=== PATIENT | female | born 1960 | race African-American/Black ===

== ENCOUNTER 2021-06-26 19:40 | Inpatient (IN) | payer OTHER ==
[~2021-06-26] VITALS: Ht 165.1 cm; Wt 78.5 kg
--- NOTE | 2021-06-26 20:20 | NUR ---
20g IV LINE INITIATED AT THE [facility].PATENT AND INTACT. BLOOD WAS DRAWN AND SENT TO LAB.
--- NOTE | 2021-06-26 20:30 | NUR ---
COVID TEST SWABBED AND SENT TO LAB
[2021-06-26 20:35] LABS: BASOPHILS % (AUTO) 0.4 % (0.0-2.0); EOSINOPHILS % (AUTO) 0.1 % (0.0-6.0); HEMATOCRIT 32 % (33-45); HEMOGLOBIN 10.3 g/dL (11.5-14.8); LYMPHOCYTES # (AUTO) 1.3 K/uL (0.8-4.8); LYMPHOCYTES % (AUTO) 10.2 % (20.0-44.0); MEAN CORPUSCULAR HGB CONC 32 g/dl (31.0-36.0); MEAN CORPUSCULAR VOLUME 92 fL (82-100); MONOCYTES # (AUTO) 0.9 K/uL (0.1-1.30); MONOCYTES % (AUTO) 7.2 % (2.0-12.0); NEUTROPHILS # (AUTO) 10.5 K/uL (1.8-8.9); NEUTROPHILS % (AUTO) 82.1 % (43.0-81.0); PLATELET COUNT (AUTO) 298 K/uL (150-450); RED BLOOD CELL COUNT(AUTO) 3.46 MIL/uL (4.0-5.2); WHITE BLOOD COUNT (AUTO) 12.8 K/uL (4.3-11.0)
--- NOTE | 2021-06-26 20:35 | NUR ---
URINE COLLECTED AND SENT TO LAB
[2021-06-26 21:10] LABS: BILIRUBIN,URINE NEGATIVE (NEGATIVE); COLOR,URINE YELLOW (YELLOW); LEUKOCYTE ESTERASE ,URINE MODERATE (NEGATIVE); NITRITE, URINE NEGATIVE (NEGATIVE); PROTEIN,URINE NEGATIVE (NEGATIVE); UGLUCOSE NEGATIVE (NEGATIVE); UROBILINOGEN,URINE 0.2 EU/dL (0.2)
[2021-06-26 21:14] LABS: BACTERIA,URINE 2+ /HPF (None Seen); WBC,URINE 21-50 /HPF (0-3)
[2021-06-26 21:15] LABS: MUCUS,URINE Few /LPF (None Seen); SQUAMOUS EPITHELIAL CELL,UR 0-2 /HPF (None Seen)
[2021-06-26] MEDS ORDERED: ONDANSETRON HCL/PF 4 MG/2 ML VIAL ONE (21:28)
[2021-06-26 21:45] LABS: ALANINE AMINOTRANSFERASE 22 U/L (12-78); ALBUMIN 3.3 g/dL (3.4-5.0); ALKALINE PHOSPHATASE 60 U/L (46-116); ASPARTATE AMINOTRANSFERASE 14 U/L (15-37); BILIRUBIN,DIRECT 0.1 mg/dL (0.0-0.2); BILIRUBIN,TOTAL 0.4 mg/dL (0.2-1.0); CALCIUM, SERUM 9.7 mg/dL (8.5-10.1); CARBON DIOXIDE 27 mmol/L (21-32); CHLORIDE 101 mmol/L (98-107); CREATININE 0.8 mg/dL (0.6-1.3); GLUCOSE 116 mg/dL (74-106); SODIUM SERUM 138 mmol/L (136-145); TOTAL PROTEIN, SERUM 7.8 g/dL (6.4-8.2); UREA NITROGEN, BLOOD 13 mg/dL (7-18)
[2021-06-26] MEDS ORDERED: ONDANSETRON HCL/PF 4 MG/2 ML VIAL IV ONE (22:00)
[2021-06-26] MEDS ORDERED: VANCOMYCIN 1 GM in IV D5W 250 ML IV ONE (22:30)
[2021-06-26] MEDS ORDERED: CEFTRIAXONE 1GM BAG (ER ONLY) 1 GM/50 ML PIGGYBACK IV ONE (22:30)
[2021-06-26] MEDS ORDERED: CEFTRIAXONE 1GM BAG (ER ONLY) 50 ML IV ONE (22:38)
[2021-06-26] MEDS ORDERED: VANCOMYCIN 1 GM VIAL ONE (22:38)
[2021-06-26] MEDS ORDERED: HYDROCODONE/APAP 5/325MG TABLET ONE (22:52)
[2021-06-26] MEDS ORDERED: HYDROCODONE/APAP 5/325MG TABLET PO ONE (23:00)
[2021-06-27] MEDS ORDERED: ACETAMINOPHEN 325 MG TABLET PO PRN (00:30)
[2021-06-27] MEDS ORDERED: ONDANSETRON HCL/PF 4 MG/2 ML VIAL IVP PRN (00:30)
[2021-06-27] MEDS ORDERED: MAGNESIUM HYDROXIDE 30 ML UDC PO PRN (00:30)
[2021-06-27] MEDS ORDERED: ZOLPIDEM TARTRATE 5 MG TABLET PO PRN (00:30)
[2021-06-27] MEDS ORDERED: Z GUARD REMEDY 4 OZ OINT TP PRN (00:30)
[2021-06-27] MEDS ORDERED: MAG HYDROX/AL HYDROX/SIMETH 30 ML UDC PO PRN (00:30)
--- NOTE | 2021-06-27 02:02 | NUR ---
REPORT GIVEN TO [facility] FOR [facility].
[2021-06-27 02:15] VITALS: BP 113/68
--- NOTE | 2021-06-27 02:20 | NUR ---
PT TRANSPORTED TO ROOM 327 IN STABLE CONDITION. V/S STABLE AT TRANSFER
[2021-06-27 02:30] VITALS: BP 113/68
--- NOTE | 2021-06-27 02:30 | NUR ---
MS GAMBRELER HELPER NOTES RECEIVED NEW ADMIT FROM ER PER CATARINA THIS 61YO FEMALE,ALERT,ORIENTED X4,WITH CHIEF COMPLAINTS OF PAIN ON LEFT BREAST,S/P BILATERAL MASTECTOMY ON May.NOTED LEFT BREAST MASTECTOMY SITE APPEARS SWOLLEN,WITH SLIGHT REDNESS,WARM AND TENDER TO THE TOUCH,NO DISCHARGES,NO FOUL SMELL NOTED.IV ANTIBIOTICS STARTED IN ER.WITH SALINE LOCK RIGHT AC INTACT AND PATENT.AMBULATE WITH STEADY GAIT,UNVACCINATED WITH COVID VACCINE WELL FLU AND PNA VACCINE.PATIENT SAYS SHE DOESNT BELIEVE IN VACCINE,AND SHE NEVER NOR S[place] GET SICK.FULL CODE STATUS.CALL LIGHT IN REACH,NEEDS ANTICIPATED.
[2021-06-27] MEDS: IV NS 0.9% 1,000 ML IV PRN ×2 (02:41→19:43)
--- NOTE | 2021-06-27 02:41 | NUR ---
MS RN NOTES IV NS STARTED AY 75ML/HR RATE INFUSING ON RIGHT AC SALINE LOCK VIA IV PUMP.
[2021-06-27] MEDS: HYDROCODONE/APAP 5/325MG TABLET PO PRN ×3 (05:57→21:08)
--- NOTE | 2021-06-27 05:57 | NUR ---
MS RN NOTES PAIN MANAGEMENT C/O PAIN ON LEFT BREAST MASTECTOMY,NORCO 5/325MG,1 TAB PO GIVEN ORDERED,,ENCOURAGE TO INCREASED FLUID INTAKE.
--- NOTE | 2021-06-27 06:39 | NUR ---
MS RN NOTES ON BED,A/O X4,IVF INFUSING WELL ON RIGHT AC SALINE LOCK.PAIN MANAGEMENT EFFECTIVE,IN NO ACUTE DISTRESS.
--- NOTE | 2021-06-27 07:38 | NUR ---
RN OPENING NOTES Patient seen comfortably lying in bed, no apparent distress noted, respirations even and unlabored, no shortness of breath, denies any pain or discomfort at this time, no grimacing. Call light left within reach, safety precautions in place, brakes locked, side rails up X 2, will monitor closely for any changes.
[2021-06-27 08:00] VITALS: BP 98/52
[2021-06-27] MEDS: PANTOPRAZOLE 40 MG TABLET.DR PO SCH (08:18)
[2021-06-27] MEDS: VANCOMYCIN 0.75 GM in IV D5W 250 ML IV SCH ×3 (08:19→23:32)
[2021-06-27] MEDS ORDERED: GABA600T12 PO (08:45)
[2021-06-27] MEDS ORDERED: FLUT1DIS3 INH (08:45)
[2021-06-27] MEDS ORDERED: OXYC1TAB8 PO (08:45)
[2021-06-27] MEDS ORDERED: ALBU18HF2 IH (08:45)
[2021-06-27] MEDS ORDERED: ACET1TAB23 PO (08:45)
--- NOTE | 2021-06-27 09:51 | NUR ---
WOUND CARE CONSULT: PT PRESENTS WITH LEFT MASTECTOMY SITE WITH OPEN AREAS, SOME SWELLING AND REDNESS, PRESENT ON ADMISSION. RECOMMENDATIONS MADE FOR WOUND CARE AND SKIN PROTECTION. DISCUSSED WITH NURSING STAFF. DR VANE BOOTH CALLED FOR SURGICAL CONSULT. IN AGREEMENT WITH PLAN OF CARE.
[2021-06-27 16:00] VITALS: BP 102/63
--- NOTE | 2021-06-27 18:59 | NUR ---
RN CLOSING NOTES Patient lying in bed, no shortness of breath, respirations even and unlabored, no apparent distress noted, no dizziness, no palpitations, no chest pain during shift. All due medications given per MD order, tolerating well, pain medications given when non pharmacological measures ineffective. Kept clean and dry, all needs attended, call light left within reach, safety precautions in place, brakes locked, frequent visual checks rendered, side rails up X 2, will endorse to next shift for continuity of care.
[2021-06-27 20:00] VITALS: BP 127/55
[2021-06-27] MEDS: CEFTRIAXONE 1 G in IV D5W 50 ML IV SCH (21:07)
[2021-06-28] MEDS: HYDROCODONE/APAP 5/325MG TABLET PO PRN ×3 (01:48→15:38)
--- NOTE | 2021-06-28 02:04 | NUR ---
LEFT BREAST DRESSING SATURATED WITH SEROSANGUINOUS FLUID, WOUND TREATMENT, DRESSING CHANGED ORDERED.
--- NOTE | 2021-06-28 06:50 | NUR ---
MS RN CLOSING NOTES PATIENT IS LAYING IN BED. Pt. A/Ox4 AND ON ROOM AIR TOLERATING WELL. NO COMPLAINTS OF PAIN MADE AT THIS TIME AND NO SIGNS OF DISTRESS. SAFETY MEASURES ARE IN PLACE: BED IS LOCKED AND IN LOWEST POSITION, SIDE RAILS UPx2. CALL LIGHT AND BED SIDE TABLE WITHIN REACH. WILL ENDORSE TO ONCOMING SHIFT.
[2021-06-28 07:08] LABS: BASOPHILS % (AUTO) 0.2 % (0.0-2.0); HEMATOCRIT 28 % (33-45); LYMPHOCYTES # (AUTO) 1.6 K/uL (0.8-4.8); LYMPHOCYTES % (AUTO) 14.8 % (20.0-44.0); MEAN CORPUSCULAR HGB CONC 33 g/dl (31.0-36.0); MEAN CORPUSCULAR VOLUME 92 fL (82-100); MONOCYTES # (AUTO) 0.8 K/uL (0.1-1.30); MONOCYTES % (AUTO) 7.1 % (2.0-12.0); NEUTROPHILS # (AUTO) 8.6 K/uL (1.8-8.9); NEUTROPHILS % (AUTO) 77.9 % (43.0-81.0); PLATELET COUNT (AUTO) 268 K/uL (150-450); RED BLOOD CELL COUNT(AUTO) 2.99 MIL/uL (4.0-5.2); WHITE BLOOD COUNT (AUTO) 11.1 K/uL (4.3-11.0)
--- NOTE | 2021-06-28 07:37 | NUR ---
MS RN OPENING NOTES RECEIVED Pt IN BED, Pt IS A/Ox4 AND IS ON ROOM AIR TOLERATING WELL. NO COMPLAINTS OF PAIN OR SIGNS OF DISTRESS AT THIS TIME. Pt HAS AN IV ON R WRIST THAT IS PATENT AND INTACT. SAFETY MEASURES ARE IN PLACE: BED IS LOCKED AND IN LOWEST POSITION. SIDE RAILS UPx2. BED SIDE TABLE AND CALL LIGHT ARE WITHIN REACH. WILL CONTINUE TO MONITOR THROUGHOUT THE SHIFT.
[2021-06-28 08:00] VITALS: BP 118/62
[2021-06-28 08:15] LABS: CALCIUM, SERUM 8.8 mg/dL (8.5-10.1); CREATININE 0.7 mg/dL (0.6-1.3); MAGNESIUM 2.1 mg/dL (1.8-2.4); PHOSPHORUS 3.7 mg/dL (2.5-4.9)
[2021-06-28 08:18] LABS: IRON, SERUM 7 ug/dl (50-175); TOTAL IRON BINDING CAPACITY 161 ug/dl (250-450)
[2021-06-28] MEDS ORDERED: IV NS 0.9% 250 ML IV ONE (08:49)
[2021-06-28] MEDS ORDERED: IOHEXOL-300 100 ML VIAL IV ONE (08:49)
[2021-06-28] MEDS ORDERED: CT SWABBABLE VALVE TRANS SET 1 EA INFUS.SET MC ONE (08:49)
[2021-06-28] MEDS ORDERED: ALBUTEROL FS 2.5 MG/3 ML VIAL.NEB NEB PRN (11:00)
[2021-06-28] MEDS: VANCOMYCIN 0.75 GM in IV D5W 250 ML IV SCH ×3 (11:06→23:56)
[2021-06-28] MEDS: PANTOPRAZOLE 40 MG TABLET.DR PO SCH (11:07)
[2021-06-28 12:07] LABS: THYROID STIMULATING HORMONE 0.872 uIU/mL (0.358-3.74)
[2021-06-28] MEDS: IV NS 0.9% 1,000 ML IV PRN (15:52)
[2021-06-28 16:00] VITALS: BP 127/65
[2021-06-28] MEDS ORDERED: FLUTICASONE/SALMETEROL 1 DISK IH SCH (17:00)
[2021-06-28 20:00] VITALS: BP 124/59
[2021-06-28] MEDS: CEFTRIAXONE 1 G in IV D5W 50 ML IV SCH (21:54)
[2021-06-28] MEDS: GABAPENTIN 300 MG CAPSULE PO SCH (21:56)
[2021-06-28 22:59] VITALS: BP 124/59
[2021-06-29] MEDS: HYDROCODONE/APAP 5/325MG TABLET PO PRN ×4 (00:02→22:27)
--- NOTE | 2021-06-29 04:40 | NUR ---
Closing Notes: alert and orientated X$ speech clear remains in Isolation to R/O TB 1st sputum Negative 06/27 in the history /Physical states she was test for TB and not treated or told if + or - She had ne change the dressing D/T she didn't like the way it was done and paper tapes (as ordered) was being used. DIDN'T remove the 4X4 gauze just the ABD and did as she wished using OPSITE no tape. right arm midline in use ambulates to the bathroom stand by assit steady on her legs left breast dressing CDI thru the night
--- NOTE | 2021-06-29 08:05 | NUR ---
RN Opening Note Patient received in bed AO x 4, no distress, able to responds all stimuli. Respiratory even and unlabored on room air. Skin is warm to touch, keep clean/dry, intact IV site. Kept elevated HOB for ensure airway/aspiration precaution and remain lower position of the bed for safety. call light within reach, will continue to monitor.
[2021-06-29 08:16] LABS: BASOPHILS % (AUTO) 0.6 % (0.0-2.0); EOSINOPHILS % (AUTO) 1.5 % (0.0-6.0); HEMATOCRIT 28 % (33-45); HEMOGLOBIN 9.3 g/dL (11.5-14.8); LYMPHOCYTES # (AUTO) 2.1 K/uL (0.8-4.8); LYMPHOCYTES % (AUTO) 28.1 % (20.0-44.0); MEAN CORPUSCULAR HGB CONC 33 g/dl (31.0-36.0); MEAN CORPUSCULAR VOLUME 92 fL (82-100); MONOCYTES # (AUTO) 0.5 K/uL (0.1-1.30); MONOCYTES % (AUTO) 6.8 % (2.0-12.0); NEUTROPHILS # (AUTO) 4.7 K/uL (1.8-8.9); PLATELET COUNT (AUTO) 285 K/uL (150-450); RED BLOOD CELL COUNT(AUTO) 3.09 MIL/uL (4.0-5.2); WHITE BLOOD COUNT (AUTO) 7.5 K/uL (4.3-11.0)
[2021-06-29] MEDS: PANTOPRAZOLE 40 MG TABLET.DR PO SCH (08:21)
[2021-06-29] MEDS: VANCOMYCIN 0.75 GM in IV D5W 250 ML IV SCH ×2 (08:22→15:48)
[2021-06-29] MEDS: FLUTICASONE/VILANTEROL 1 EACH BLST.W.DEV IH SCH (08:22)
[2021-06-29 08:46] VITALS: BP 139/76
[2021-06-29 09:17] LABS: CREATININE 0.7 mg/dL (0.6-1.3); POTASSIUM 4.2 mmol/L (3.5-5.1)
[2021-06-29 16:00] VITALS: BP 139/74
--- NOTE | 2021-06-29 17:32 | NUR ---
RN Closing Note Patient is resting in bed, AO x 4, no distress observed. Respiratory even and unlabored on room air. Skin is warm to touch, keep clean/dry, intact IV site. Kept elevated HOB for ensure airway and aspiration precaution. Also lower position of the bed for safety. Dressing changed on left upper chest. No adverse reaction observed form antibiotics. Call light within reach, all needs met. will endorse shift superintendent caustic cresylate.
--- NOTE | 2021-06-29 19:15 | NUR ---
MS RN OPENING NOTES PATIENT LAYING AWAKE IN BED. A/O X4. PATIENT WITH REGULAR AND UNLABORED BREATHING ON ROOM AIR, TOLERATED WELL. NO SIGNS OR SYMPTOMS OF DISTRESS NOTED AT THIS TIME. NO COMPLAINS OF PAIN OR DISCOMFORT AT THIS TIME. IV ACCESS AMARIS MIDLINE INFUSING NS @ 75 ML/HR. IV ACCESS PATENT AND INTACT. SAFETY PRECAUTIONS ENFORCED WITH BED LOCKED AND AT LOWEST POSITION. SIDERAILS UP X2. CALL LIGHT WITHIN REACH AT ALL TIMES. WILL CONTINUE TO MONITOR PATIENT.
[2021-06-29 20:00] VITALS: BP 151/81
[2021-06-29] MEDS: IV NS 0.9% 1,000 ML IV PRN (20:17)
[2021-06-29] MEDS: GABAPENTIN 300 MG CAPSULE PO SCH (22:20)
[2021-06-30] MEDS: VANCOMYCIN 0.75 GM in IV D5W 250 ML IV SCH ×4 (00:13→22:40)
[2021-06-30 06:53] LABS: BASOPHILS # (AUTO) 0.1 K/uL (0.0-0.2); BASOPHILS % (AUTO) 0.9 % (0.0-2.0); HEMATOCRIT 29 % (33-45); HEMOGLOBIN 9.4 g/dL (11.5-14.8); LYMPHOCYTES # (AUTO) 2.4 K/uL (0.8-4.8); LYMPHOCYTES % (AUTO) 38.6 % (20.0-44.0); MEAN CORPUSCULAR HGB CONC 33 g/dl (31.0-36.0); MEAN CORPUSCULAR VOLUME 91 fL (82-100); MONOCYTES # (AUTO) 0.4 K/uL (0.1-1.30); MONOCYTES % (AUTO) 6.9 % (2.0-12.0); NEUTROPHILS # (AUTO) 3.2 K/uL (1.8-8.9); NEUTROPHILS % (AUTO) 51.6 % (43.0-81.0); PLATELET COUNT (AUTO) 335 K/uL (150-450); RED BLOOD CELL COUNT(AUTO) 3.18 MIL/uL (4.0-5.2); WHITE BLOOD COUNT (AUTO) 6.2 K/uL (4.3-11.0)
--- NOTE | 2021-06-30 06:58 | NUR ---
MS RN CLOSING NOTES PATIENT LAYING STILL AWAKE IN BED. A/O X4. PATIENT WITH REGULAR AND UNLABORED BREATHING ON ROOM AIR, TOLERATED WELL. NO SIGNS OR SYMPTOMS OF DISTRESS NOTED AT THIS TIME. NO COMPLAINS OF PAIN OR DISCOMFORT AT THIS TIME. IV ACCESS AMARIS MIDLINE INFUSING NS @ 75 ML/HR. IV ACCESS PATENT AND INTACT. SAFETY PRECAUTIONS ENFORCED WITH BED LOCKED AND AT LOWEST POSITION. SIDERAILS UP X2. CALL LIGHT WITHIN REACH AT ALL TIMES. WILL ENDORSE CONTINUITY OF CARE TO DAY SHIFT NURSE.
[2021-06-30 07:13] LABS: CALCIUM, SERUM 9.3 mg/dL (8.5-10.1); CREATININE 0.7 mg/dL (0.6-1.3); POTASSIUM 3.8 mmol/L (3.5-5.1)
--- NOTE | 2021-06-30 07:42 | NUR ---
RN Opening Note Patient received in bed AO x 4, no distress observed, able to responds all stimuli. Respiratory even and unlabored on room air. Skin is warm to touch, keep clean/dry, intact IV site. Kept elevated HOB for ensure airway/aspiration precaution and remain lower position of the bed for safety. call light within reach, will continue to monitor.
[2021-06-30] MEDS: PANTOPRAZOLE 40 MG TABLET.DR PO SCH (07:53)
[2021-06-30 08:00] VITALS: BP 164/86
[2021-06-30] MEDS: FLUTICASONE/VILANTEROL 1 EACH BLST.W.DEV IH SCH (09:14)
[2021-06-30] MEDS: HYDROCODONE/APAP 5/325MG TABLET PO PRN ×2 (11:24→22:52)
[2021-06-30] MEDS: IV NS 0.9% 1,000 ML IV PRN ×2 (13:31→22:42)
[2021-06-30 16:00] VITALS: BP 127/75
--- NOTE | 2021-06-30 16:05 | NUR ---
Called Laboratory follow up for TB Quant gold, but Laboratory says "result will takes few days." Will endorse next shift.
[2021-06-30] MEDS ORDERED: BACI/NEOM/POLY B OINT PKT 1 UDPKT PACKET TP SCH (17:00)
[2021-06-30] MEDS: NEOMY SULF/BACITRAC ZN/POLY 15 GM TUBE TP SCH (17:05)
--- NOTE | 2021-06-30 18:00 | NUR ---
RN Closing Note Patient is resting in bed, AO x 4, no distress observed. Respiratory even and unlabored on room air, still pending TB result. Skin is warm to touch, keep clean/dry. Kept elevated HOB for ensure airway and aspiration precaution. Also lower position of the bed for safety. Dressing changed on left upper chest. No adverse reaction observed form antibiotics. Call light within reach, all needs met. will endorse fast food shift lead.
--- NOTE | 2021-06-30 18:36 | NUR ---
Patient c/o sore, redness and pain on right upper arm after midline insertion. New order Venous Doppler, noted and carry out.
[2021-06-30] MEDS: GABAPENTIN 300 MG CAPSULE PO SCH (22:39)
[2021-07-01 04:27] VITALS: BP 148/90
[2021-07-01] MEDS: IV NS 0.9% 1,000 ML IV PRN (05:18)
[2021-07-01 07:20] LABS: BASOPHILS # (AUTO) 0.1 K/uL (0.0-0.2); EOSINOPHILS % (AUTO) 2.1 % (0.0-6.0); HEMATOCRIT 29 % (33-45); HEMOGLOBIN 9.2 g/dL (11.5-14.8); LYMPHOCYTES # (AUTO) 2.7 K/uL (0.8-4.8); MEAN CORPUSCULAR HGB CONC 32 g/dl (31.0-36.0); MEAN CORPUSCULAR VOLUME 91 fL (82-100); MONOCYTES # (AUTO) 0.5 K/uL (0.1-1.30); NEUTROPHILS # (AUTO) 4.1 K/uL (1.8-8.9); NEUTROPHILS % (AUTO) 53.9 % (43.0-81.0); PLATELET COUNT (AUTO) 318 K/uL (150-450); RED BLOOD CELL COUNT(AUTO) 3.16 MIL/uL (4.0-5.2); WHITE BLOOD COUNT (AUTO) 7.6 K/uL (4.3-11.0)
--- NOTE | 2021-07-01 07:30 | NUR ---
MS RN OPENING NOTES RECEIVED PATIENT LAYING AWAKE IN BED. A/O X4. PATIENT WITH REGULAR AND UNLABORED BREATHING ON ROOM AIR, TOLERATED WELL. NO SIGNS OR SYMPTOMS OF ACUTE DISTRESS NOTED AT THIS TIME. NO COMPLAINS OF PAIN OR DISCOMFORT AT THIS TIME. IV ACCESS AMARIS MIDLINE ONGOING NS @ 75 ML/HR, INFUSING WELL. IV ACCESS PATENT AND INTACT. SAFETY PRECAUTIONS IN PLACE WITH BED LOCKED AND AT LOWEST POSITION. SIDE RAILS UP X2. CALL LIGHT WITHIN REACH AT ALL TIMES. WILL CONTINUE TO MONITOR PATIENT ACCORDINGLY.
[2021-07-01 07:34] LABS: CREATININE 0.7 mg/dL (0.6-1.3); POTASSIUM 3.8 mmol/L (3.5-5.1)
[2021-07-01] MEDS: PANTOPRAZOLE 40 MG TABLET.DR PO SCH (07:41)
[2021-07-01 07:49] LABS: CALCIUM, SERUM 9.1 mg/dL (8.5-10.1)
[2021-07-01] MEDS: VANCOMYCIN 0.75 GM in IV D5W 250 ML IV SCH ×2 (07:56→16:05)
[2021-07-01 08:00] VITALS: BP 153/89
[2021-07-01] MEDS: HYDROCODONE/APAP 5/325MG TABLET PO PRN (08:00)
[2021-07-01] MEDS: NEOMY SULF/BACITRAC ZN/POLY 15 GM TUBE TP SCH ×2 (08:58→16:53)
[2021-07-01] MEDS: FLUTICASONE/VILANTEROL 1 EACH BLST.W.DEV IH SCH (09:03)
[2021-07-01] MEDS ORDERED: VANC750F2 IV (11:31)
[2021-07-01] MEDS ORDERED: VANC1VIA34 XX (11:31)
[2021-07-01] MEDS ORDERED: Neomy Sulf/Bacitrac Zn/Poly TP (11:31)
[2021-07-01] MEDS ORDERED: RIVA10TA PO (14:11)
[2021-07-01] MEDS ORDERED: RIVAROXABAN 15 MG TABLET PO SCH (15:00)
[2021-07-01 16:14] VITALS: BP 161/78
--- NOTE | 2021-07-01 17:37 | NUR ---
RN NOTES PER [facility] TECH, DVT LOCATION IS NOT ON THE IV ACCESS LOCATION. SAFE TO KEEP MIDLINE ON DISCHARGE FOR ANTIBIOTIC THERAPY.
--- NOTE | 2021-07-01 18:37 | NUR ---
SPACE PLANNER NOTES DISCHARGE PATIENT IN STABLE CONDITION. VITAL SIGNS WITHIN NORMAL LIMITS. DISCHARGE INSTRUCTIONS PROVIDED AND DISCUSSED WITH PATIENT. FOLLOW UP DISCUSSED WITH PATIENT WELL, PATIENT VERBALIZED UNDERSTANDING. BELONGINGS ACCOUNTED AND SIGNED FOR. IV ACCESS MAINTAINED, PATIENT TO CONTINUE IV ANTIBIOTIC ORDERED. ESCORTED TO LOBBY SAFELY. PATIENT WAS PICKED UP BY DAUGHTER. LEFT UNIT IN STABLE CONDITION. MD AND CHARGE NURSE AWARE OF DISCHARGE.
== END 2021-07-01 18:40 | disposition home health service (06) | DRG 720 ==
LOC: ER 19:44 → TRANSITION 22:51 → MED 06-27 00:08
PROVIDERS: ADMIT Nurse Practitioner Family; ATTEND Nurse Practitioner Acute Care
PROC: 05H533Z Insertion of Infusion Device into Right Subclavian Vein, Percutaneous Approach (ICD-10-PCS; principal; 2021-06-28)
PROC: B546ZZA Ultrasonography of Right Subclavian Vein, Guidance (ICD-10-PCS; 2021-06-28)
DX: T81.44XA Sepsis following a procedure, initial encounter (principal); A41.02 Sepsis due to Methicillin resistant Staphylococcus aureus; E44.1 Mild protein-calorie malnutrition; T81.43XA Infection following a procedure, organ and space surgical site, initial encounter; E88.09 Other disorders of plasma-protein metabolism, not elsewhere classified; I80.8 Phlebitis and thrombophlebitis of other sites; L03.313 Cellulitis of chest wall; G62.9 Polyneuropathy, unspecified; J44.9 Chronic obstructive pulmonary disease, unspecified; M81.0 Age-related osteoporosis without current pathological fracture; N39.0 Urinary tract infection, site not specified; Z20.822 Contact with and (suspected) exposure to COVID-19; D64.9 Anemia, unspecified; L02.213 Cutaneous abscess of chest wall; Z87.891 Personal history of nicotine dependence; Z85.3 Personal history of malignant neoplasm of breast; Y83.8 Other surgical procedures as the cause of abnormal reaction of the patient, or of later complication, without mention of misadventure at the time of the procedure; Y92.89 Other specified places as the place of occurrence of the external cause; Z90.13 Acquired absence of bilateral breasts and nipples; M19.90 Unspecified osteoarthritis, unspecified site; R05.9 Cough, unspecified; Z68.28 Body mass index [BMI] 28.0-28.9, adult
CPT/HCPCS: 36415; 71045-TC; 71260-TC; 80048-TC; 80061-TC; 80076-TC; 80202-TC; 81001; 83540-TC; 83605-TC; 83735-TC; 84100-TC; 84443-TC; 84484-TC; 85025-TC; 85730-TC; 86480; 86803; 87040-TC; 87070-TC; 87081-TC; 87086-TC; 87806; 93971-TC; A6253; A6403; C9803; G0378; J0696; J2405; J3370; J7030; J7050; J7060; Q9967